=== PATIENT | female | born 1980 | race Caucasian/White ===

== ENCOUNTER → 2021-03-11 | Outpatient (CLI) | payer BC, OTHER | LOC: EXRD 13:35 | DX: E04.9 Nontoxic goiter, unspecified (principal); R00.2 Palpitations | CPT/HCPCS: 76536 ==

== ENCOUNTER → 2021-12-09 | Outpatient (CLI) | payer BC, OTHER | LOC: KOH-I 12-07 08:45 | DX: M79.602 Pain in left arm (principal); E04.2 Nontoxic multinodular goiter | CPT/HCPCS: 73030; 93971 ==